=== PATIENT | female | born 1950 | race Caucasian/White ===

== ENCOUNTER → 2018-10-08 | Outpatient (CLI) | payer MEDICARE ==
--- NOTE | 2018-10-11 10:48 | RADIOLOGY IMAGING REPORT ---
FACILITY: [facility] PATIENT NAME: RAMON DONOVAN : [id number] MR: [id number] V: [id number] EXAM DATE: [id number] ORDERING PHYSICIAN: BETTINA BRAN TECHNOLOGIST: Luz Shaw PROCEDURE:BILATERAL DIGITAL SCREENING MAMMOGRAM WITH CAD ASSISTED INTERPRETATION & 3D TOMOSYNTHESIS COMPARISON:Prior mammograms. INDICATIONS:screening FINDINGS: Scattered fibroglandular densities are present in both breasts. Focal asymmetries are present in the superior Right breast and lateral Left breast, unchanged. A few benign appearing calcifications are scattered bilaterally. DIAGNOSTIC CATEGORY 2--BENIGN FINDING. RECOMMENDATIONS: ROUTINE MAMMOGRAM AND CLINICAL EVALUATION. IMPRESSION: BIRADS 2: Benign finding. Dictated by: Talon Rogers M.D. on 10/08/2018 at 16:54 Transcribed by: SY on 10/11/2018 at 8:26 Approved by: Sanam Hunt M.D. on 10/11/2018 at 10:47 [facility]
== END ==
LOC: MAMO 02:47
PROVIDERS: ATTEND Obstetrics & Gynecology
DX: Z12.31 Encounter for screening mammogram for malignant neoplasm of breast (principal); R92.1 Mammographic calcification found on diagnostic imaging of breast
CPT/HCPCS: 77063; 77067